=== PATIENT | female | born 1965 | race Caucasian/White ===

== ENCOUNTER 2017-02-12 15:19 | Emergency (ER) | payer OTHER ==
[~2017-02-12] VITALS: Ht 157.5 cm; Wt 80.1 kg
[~2017-02-12 15:19] MED LIST: ACID CONTROLLER10 MG PO; ACID CONTROLLER20 MG PO; AMBIEN CR12.5 MG PO; AMBIEN10 MG PO; AMLODIPINE BESY10 MG PO; AMOX TR-K CLV1 EAC4 PO; APRESOLINE25 MG PO; ASPIR-TRIN325 M1 PO; Bactrim,Septra DS 80 PO; CATAPRES-TTS 21 EACH TD; CELEBREX200 MG PO; CLARITIN,ALAVAR10 MG PO; COGENTIN2 MG PO; DESYREL100 MG PO; DIAZEPAM10 MG; FIORICET 50-301 EACH PO; FIORICET,ESG1 TABLET PO; FLEXERIL10 MG PO; FLONASE16 G1 BOTH NARES; FLOVENT 11120 INHALA IH; GLUCOPHAGE500 MG PO; HYDROCHLOROTH12.5 M3 PO; IMDUR30 MG PO; INDERAL40 MG PO; INVEGA1.5 MG PO; INVEGA6 MG PO; INVEGA9 M1 PO; Imdur PO; Invega PO; LAMICTAL150 M1 PO; LEXAPRO20 MG PO; LISINOPRIL20 MG PO; LITHIUM; LOSARTAN POTAS100 MG PO; METFORMIN HCL500 MG PO; MORPHINE SULFAT15 MG PO; MORPHINE SULFATE5 MG PO; MOTRIN800 MG PO; NAPROXEN500 MG PO; NEURONTIN300 MG PO; NITROGLYCERIN0.3 MG SL; NITROSTAT0.4 MG SL; OMEPRAZOLE40 M1 PO; PANTOPRAZOLE SO40 MG PO; POTASSIUM CHLO20 ME1 PO; PRILOSEC40 MG PO; PROAIR HFA8.5 GM IH; PROTONIX40 MG PO; SEROQUEL XR150 MG PO; SEROQUEL100 MG PO; SILENOR3 MG PO; SIMVASTATIN10 MG PO; TEMAZEPAM30 MG PO; TOPROL XL50 MG PO; TYLENOL WITH C1 EACH PO; Toprol XL PO; ULTRAM50 MG PO; Valium PO; XANAX1 MG PO; XANAX2 MG PO; Xanax PO; ZESTRIL,PRINIVI10 MG PO; ZESTRIL40 MG PO; ZOLOFT100 MG PO; ZOLPIDEM TARTRA10 MG PO; ZYPREXA2.5 MG PO; Zestril,Prinivil PO
[2017-02-12 15:41] LABS: ADD MIUA? YES; BILIRUBIN NEGATIVE; BLOOD NEGATIVE; COLOR YELLOW ((YELLOW)); GLUCOSE (STRIP) NEGATIVE; KETONES NEGATIVE; LEUKOCYTES NEGATIVE; NITRITE NEGATIVE; PROTEIN (STRIP) NEGATIVE; SPECIFIC GRAVITY 1.012 (1.000-1.030)
[2017-02-12 15:42] LABS: HEMATOCRIT 43.8 % (36.0-46.0); MCH 31.5 PG (29.0-34.0); MCHC 34.9 G/DL (30.0-36.0); MCV 90.3 FL (83-99); MEAN PLAT.VOLUME 10.6 uM^3 (9.5-12.4); PLATELET COUNT 182 K/uL (156-360); RBC DIS.WIDTH-CV 11.9 % (11.8-14.6); RBC DIS.WIDTH-SD 39.5 % (39-53); RED BLOOD COUNT 4.85 M/uL (3.80-5.20); WHITE BLOOD COUNT 5.8 K/uL (4.1-10.2)
[2017-02-12 15:52] LABS: CHLORIDE 108 mEq/L (99-109); POTASSIUM 3.7 mEq/L (3.7-5.4); SODIUM 141 mEq/L (136-147)
[2017-02-12 15:54] LABS: GLUCOSE 94 mg/dL (70-99)
[2017-02-12 15:55] LABS: ANION GAP 7 MEQ/L (2-14)
[2017-02-12 15:56] LABS: TOTAL BILIRUBIN 0.4 mg/dL (0.0-1.0)
[2017-02-12 15:57] LABS: ALKALINE PHOSPHATASE 153 IU/L (3-129)
[2017-02-12 15:58] LABS: GFR ESTIMATE (CALCULATED) > 59 mL/min/
[2017-02-12 15:59] LABS: UREA NITROGEN (BUN) 10 mg/dL (9-23)
[2017-02-12 16:06] LABS: QUANTITATIVE HCG < 4.0 MIU/ML
[2017-02-12 16:15] LABS: BACTERIA RARE /HPF; EPITHELIAL CELLS 1+ /HPF; MUCUS TRACE /LPF; RED BLOOD CELLS 0-5 /HPF (0-5); UCUL ADDED? NO; WHITE BLOOD CELLS 0-5 /HPF (0-5)
[2017-02-12] MEDS ORDERED: ZOFRAN ODT4 MG PO (18:00)
[2017-02-12] MEDS ORDERED: BENTYL20 MG PO (18:00)
[2017-02-12 18:09] VITALS: BP 170/81
== END 2017-02-12 18:09 | disposition home or self-care (01) ==
LOC: EME 15:19
DX: R10.84 Generalized abdominal pain (principal); E78.5 Hyperlipidemia, unspecified; E11.9 Type 2 diabetes mellitus without complications; Z79.84 Long term (current) use of oral hypoglycemic drugs; I10 Essential (primary) hypertension; K21.9 Gastro-esophageal reflux disease without esophagitis; J45.909 Unspecified asthma, uncomplicated; F32.9 Major depressive disorder, single episode, unspecified; Z88.5 Allergy status to narcotic agent; Z88.0 Allergy status to penicillin; Z88.8 Allergy status to other drugs, medicaments and biological substances
CPT/HCPCS: 74176; 80053; 81003; 84702; 85027

== ENCOUNTER 2017-03-19 15:58 | Emergency (ER) | payer OTHER ==
[~2017-03-19] VITALS: Ht 157.5 cm; Wt 83.2 kg
[~2017-03-19 15:58] MED LIST changes: +BENTYL20 MG PO; +ZOFRAN ODT4 MG PO
[2017-03-19 18:44] LABS: APPEARANCE CLOUDY ((CLEAR)); BILIRUBIN NEGATIVE; BLOOD MODERATE; COLOR YELLOW ((YELLOW)); GLUCOSE (STRIP) 50; KETONES NEGATIVE; LEUKOCYTES LARGE; NITRITE NEGATIVE; PROTEIN (STRIP) 30; SPECIFIC GRAVITY 1.028 (1.000-1.030); UROBILINOGEN 0.2 MG/DL (0.2-1.0)
[2017-03-19 18:59] LABS: BACTERIA 2+ /HPF; CALCIUM OXALATE CRYSTALS 1+ /HPF; EPITHELIAL CELLS 1+ /HPF; MUCUS 2+ /LPF; RED BLOOD CELLS 0-5 /HPF (0-5); UCUL ADDED? YES; WHITE BLOOD CELLS 30-40 /HPF (0-5)
[2017-03-19] MEDS ORDERED: KEFLEX500 MG PO (19:16)
[2017-03-19] MEDS ORDERED: PYRIDIUM200 MG PO (19:16)
[2017-03-19 19:30] VITALS: BP 158/84
== END 2017-03-19 19:34 | disposition home or self-care (01) ==
LOC: EME 15:58
DX: N39.0 Urinary tract infection, site not specified (principal); B96.20 Unspecified Escherichia coli [E. coli] as the cause of diseases classified elsewhere; I10 Essential (primary) hypertension; E11.9 Type 2 diabetes mellitus without complications; E78.5 Hyperlipidemia, unspecified; J45.909 Unspecified asthma, uncomplicated; F32.9 Major depressive disorder, single episode, unspecified; K21.9 Gastro-esophageal reflux disease without esophagitis; Z79.84 Long term (current) use of oral hypoglycemic drugs; Z88.0 Allergy status to penicillin; Z88.5 Allergy status to narcotic agent; Z88.6 Allergy status to analgesic agent; Z88.8 Allergy status to other drugs, medicaments and biological substances
CPT/HCPCS: 81003; 84703; 87077; 87086; 87186